=== PATIENT | male | born 1975 | race American Indian/Alaskan Native ===

== ENCOUNTER 2018-06-08 09:29 | Emergency (ER) | payer BC ==
[2018-06-08 09:32] VITALS: BMI 33.0
[2018-06-08 09:34] VITALS: RESP 18; O2SAT 99
[2018-06-08] MEDS ORDERED: Naproxen 550 mg Tab PO STA (09:49)
--- NOTE | 2018-06-08 09:52 | C.PDOC ---
History Of Present Illness 42 yo male presnets with left knee pain s/p playing baseketball. no direct trauma or fall, just states he injured "while driving to the basket". no head injury or other complaints Time Seen by Provider: 06/08/18 09:46 Chief Complaint (Nursing): Lower Extremity Problem/Injury Past Medical History Reviewed: Historical Data, Nursing Documentation, Vital Signs Vital Signs: Last Vital Signs Temp 97.8 F 06/08/18 15:56 Pulse 64 06/08/18 15:56 Resp 18 06/08/18 15:56 BP 153/92 H 06/08/18 15:56 Pulse Ox 99 06/08/18 16:45 - Medical History PMH: HTN Family History: States: Unknown Family Hx - Social History Hx Alcohol Use: No Hx Substance Use: No - Immunization History Hx Tetanus Toxoid Vaccination: No Hx Influenza Vaccination: No Hx Pneumococcal Vaccination: No Review Of Systems Musculoskeletal: Positive for: Other (knee pain, left) Physical Exam - Physical Exam Appears: Well, No Acute Distress Skin: Normal Color, Warm, Dry Eye(s): bilateral: Normal Inspection, PERRL, EOMI Nose: Normal Throat: Normal Neck: Normal Cardiovascular: Rhythm Regular Respiratory: Normal Breath Sounds Gastrointestinal/Abdominal: Normal Exam Back: Normal Inspection Extremity: Normal ROM, Tenderness (mild tenderness, swelling to left knee), No Deformity ED Course And Treatment O2 Sat by Pulse Oximetry: 99 Medical Decision Making Medical Decision Making: suspect ligamentous injury (-)compression distraction, (+)ttp over patella tendon, able ot extend knee w/o distress. noted xr finding of ?fx at tibial tuberosity. case discussed with ortho contact center professional dr knight, requests stat mri to exclude ligamentous injury. mri later shows partial tear. request knee immobilizer and crutches outpt fu tommorow. pt remains neurovasc intact. Disposition - Disposition Referrals: [facility] [Outside] [facility] [Outside] Lonny Carrera III, MD [Staff Provider] - Disposition: HOME/ ROUTINE Disposition Time: 03:00 Condition: STABLE Additional Instructions: you should follow up as an outpatient tommorow, and return to er with worsening symptoms or concerns. Prescriptions: Naproxen [Naprosyn] 500 mg PO BID PRN #14 tablet PRN Reason: Pain, Mild (1-3) Instructions: Tibia Fracture, Ligament Injuries in the Knee, Knee Pain (DC) Forms: [employer] ([place]ican), Work Excuse - Clinical Impression Clinical Impression: Patellar tendon rupture, Knee sprain
[2018-06-08] MEDS ORDERED: Naproxen 550 mg Tab PO ONE (10:03)
--- NOTE | 2018-06-08 10:26 | RAD ---
Date of service: 06/08/2018 PROCEDURE: Left Knee Radiographs. HISTORY: Pain. COMPARISON: None. FINDINGS: BONES: Fragmentation in the region of the tibial tubercle. JOINTS: Unremarkable. JOINT EFFUSION: Moderate joint effusion and infiltration of Hoffa's fat pad. OTHER FINDINGS: Non. IMPRESSION: Moderate joint effusion, infiltration of Hoffa's fat pad and fragmentation in the region of the tibial tubercle. MRI can be obtained for further evaluation as clinically warranted.
--- NOTE | 2018-06-08 15:32 | MRI ---
Date of service: 06/08/2018 PROCEDURE: MRI Left Knee HISTORY: Pain. COMPARISON: None available. TECHNIQUE: Multiecho multiplanar sequences were performed through the left knee. FINDINGS: ANTERIOR CRUCIATE LIGAMENT:: There is edematous signal change identified within the mid portion of the ligament with limited fluid surrounding it as well suspicious for partial tear or moderate sprain. No full-thickness tear identified. POSTERIOR CRUCIATE LIGAMENT:: Intact. MEDIAL MENISCUS:: Intact. LATERAL MENISCUS:: Intact. MEDIAL COLLATERAL LIGAMENT:: Intact without acute tear. LATERAL COLLATERAL LIGAMENT COMPLEX:: High-signal in the proximal segment of the mid to posterior fibers suggests a mild sprain or mild partial tear. QUADRICEPS TENDON:: Intact. PATELLAR TENDON:: Inhomogeneous signal as well as thickening of the patellar tendon at the mid to distal segment is suspicious for [id number] partial tear. Trace pre tendon fluid and moderate subcutaneous pre tendon soft tissue edema are identified. CARTILAGE:: Mild chondromalacia seen the patellofemoral and medial femorotibial compartments compatible with limited degenerative change. JOINT FLUID:: There is a mild suprapatellar bursa effusion identified. OSSEOUS STRUCTURES:: No fracture or bone contusion identified. OTHER FINDINGS: None. IMPRESSION: 1. Partial tear versus moderate sprain ACL. 2. Partial tear versus [id number] sprain posterior fibers LCL. 3. Findings suspicious for additional partial-tear or or moderate sprain of the patellar tendon with localize peripheral edema also related.
[2018-06-08 15:57] VITALS: BP 153/92; PULSE 64; TEMP 97.8
== END 2018-06-08 15:57 | disposition home or self-care (01) ==
LOC: C.ER 09:29
DX: S76.112A Strain of left quadriceps muscle, fascia and tendon, initial encounter (principal); X50.0XXA Overexertion from strenuous movement or load, initial encounter; Y93.67 Activity, basketball; Y92.39 Other specified sports and athletic area as the place of occurrence of the external cause

== ENCOUNTER 2018-07-20 10:24 | Emergency (ER) | payer BC ==
[2018-07-20 10:25] VITALS: BMI 33.0
[2018-07-20 10:42] VITALS: RESP 18
--- NOTE | 2018-07-20 10:49 | C.PDOC ---
History Of Present Illness 43 year old male w/PMHx of HTN presents to the emergency department for evaluation of right foot pain developed two days ago while playing basketball. Patient states that he was running and fell some pop in his right heel area. Patient states since than, his pain is localized over Right heel area and is worse with ambulation. Pt denies complete fall, denies deformities to Right foot , weakness, sensory or vascular deficits. Ambulate to Ed for evaluation, not in any apparent distress. (Sheila Dutton) History Per: Patient History/Exam Limitations: no limitations Onset/Duration Of Symptoms: Days (2) Current Symptoms Are (Timing): Still Present - Ankle/Foot Description Of Injury: Other (landed after a jump) Currently Unable To: Bear Weight, Other (ambulate) Time Seen by Provider: 07/20/18 10:28 Chief Complaint (Nursing): Lower Extremity Problem/Injury Past Medical History Reviewed: Historical Data, Nursing Documentation, Vital Signs - Medical History PMH: HTN Surgical History: No Surg Hx Family History: States: No Known Family Hx - Social History Hx Alcohol Use: No Hx Substance Use: No - Immunization History Hx Tetanus Toxoid Vaccination: No Hx Influenza Vaccination: No Hx Pneumococcal Vaccination: No Vital Signs: Last Vital Signs Temp 98.2 F 07/20/18 11:29 Pulse 63 07/20/18 11:29 Resp 18 07/20/18 11:29 BP 167/103 H 07/20/18 11:29 Pulse Ox 96 07/20/18 11:29 Review Of Systems Except As Marked, All Systems Reviewed And Found Negative. Musculoskeletal: Positive for: Foot Pain (right foot) Neurological: Negative for: Weakness, Numbness Physical Exam - Physical Exam Appears: Well, Non-toxic, No Acute Distress Skin: Warm, Dry, No Ecchymosis Head: Atraumatic, Normacephalic Extremity: Normal ROM (Right foot and ankle without difficulty, no neurovascular deficist.), Tenderness (mild tenderness over the calcaneal area of the right foot. NO edema, no erythema, no palpable deformity.), No Calf Tenderness, Capillary Refill (< 2 seconds), No Deformity, No Swelling Pulses: Right Dorsalis Pedis: Normal DTR: Ankle (R): 2+ Neurological/Psych: Oriented x3, Normal Speech, Normal Cognition ED Course And Treatment O2 Sat by Pulse Oximetry: 95 (RA) Pulse Ox Interpretation: Normal - Other Rad Right foot X-Ray: Interpreted by Me, Viewed By Me Interpretation: (+)mild DJD, no acute fx or dislocation Progress Note: Plan: Motrin 600mg PO. XR Right Foot. On re-evaluation, pt is afebrile, hemodynamicaly stable. Non-toxic. Ambulatory in ED with stable gait. Right foot: mild tenderness over planrasp aspect calcaneus. No deformity , no edema, no erythema. FAROM of Right ankle and foot, no neurovascular deficits. Imaging review (-) acute fx of dislocation. Danilo wrap and air cast applied to Right foot/ ankle. Pt advised on course of ds. ref. to F/U with Podiatry in 2-3 days for re-eval. return if any new changes. Disposition Counseled Patient/Family Regarding: Studies Performed, Diagnosis, Need For Followup, Rx Given - Disposition Disposition Time: 11:09 - Disposition Referrals: [facility] [Outside] Disposition: HOME/ ROUTINE Condition: STABLE Additional Instructions: RICE-rest,ice,compression, elevation take Ibuprofen daily for 4-5 days Follow up with Podiatry Clinic on from Noon-3PM for further evaluation and treatment return to Ed if any worsening or new changes. Prescriptions: Ibuprofen [Motrin Tab] 600 mg PO TID #14 tab Instructions: High Blood Pressure in Adults, Foot Sprain (DC) Forms: [employer] (Spanish), Work Excuse - Clinical Impression Clinical Impression: Foot sprain, Hypertension - PA / [employer]IST / Resident Statement MD/DO has reviewed & agrees with the documentation as recorded. - Scribe Statement The provider has reviewed the documentation as recorded by the Scribe (Peng Kumari) - Scribe Statement All medical record entries made by the Scribe were at my direction and personally dictated by me. I have reviewed the chart and agree that the record accurately reflects my personal performance of the history, physical exam, medical decision making, and the department course for this patient. I have also personally directed, reviewed, and agree with the discharge instructions and disposition. (Sheila Dutton)
[2018-07-20 11:30] VITALS: BP 167/103; PULSE 63; TEMP 98.2; O2SAT 96
--- NOTE | 2018-07-20 13:50 | RAD ---
Date of service: 07/20/2018 PROCEDURE: Right Foot Radiographs. HISTORY: Injury. COMPARISON: None. FINDINGS: BONES: No definitive evidence of acute displaced fracture nor dislocation within limitation of the exam (Note that hammertoe deformities limit evaluation of the middle and distal phalanges. JOINTS: As mentioned above, there are hammertoe deformities of the 2nd through 5th digits. Small plantar surface calcaneal enthesophyte. SOFT TISSUES: Normal. OTHER FINDINGS: None. IMPRESSION: Somewhat limited study demonstrating no evidence of acute displaced fracture nor dislocation.
== END 2018-07-20 11:30 | disposition home or self-care (01) ==
LOC: C.ER 10:24
DX: S93.601A Unspecified sprain of right foot, initial encounter (principal); W18.30XA Fall on same level, unspecified, initial encounter; Y93.67 Activity, basketball